=== PATIENT | male | born 1980 | race American Indian/Alaskan Native ===

== ENCOUNTER 2025-09-05 19:24 | Emergency (ER) | payer SELFPAY ==
[2025-09-05 20:23] LABS: BASOPHILS ABSOLUTE AUTO 0.07 K/uL (0.00-0.20); BASOPHILS PERCENT AUTO 0.6 % (0.0-1.0); EOSINOPHILS ABSOLUTE AUTO 0.16 K/uL (0.00-0.45); EOSINOPHILS PERCENT AUTO 1.4 % (0.0-6.0); IMMATURE GRAN ABSOLUTE AUTO 0.04 K/uL (0.00-0.05); IMMATURE GRAN PERCENT AUTO 0.4 % (0.0-0.4); LYMPHOCYTES ABSOLUTE AUTO 2.95 K/uL (1.00-4.80); LYMPHOCYTES PERCENT AUTO 26.2 % (24.0-44.0); MEAN PLATELET VOLUME 11.2 fL (9.4-12.4); MONOCYTES ABSOLUTE AUTO 0.55 K/uL (0.00-0.80); MONOCYTES PERCENT AUTO 4.9 % (0.0-8.0); NEUTROPHILS ABSOLUTE AUTO 7.48 K/uL (1.80-7.70); NEUTROPHILS PERCENT AUTO 66.5 % (41.0-71.0); NRBC ABSOLUTE 0.00 K/uL (0.00-0.02); NRBC PERCENT 0.0 /100WBC (0.0-0.2); PLATELET COUNT,PLT 270 K/uL (150-400); RED BLOOD CELL COUNT 5.20 M/uL (4.52-5.90); WHITE BLOOD CELL COUNT,WBC 11.25 K/uL (3.9-11.3)
[2025-09-05] MEDS ORDERED: Sodium Chloride 0.9% 10 ML Syringe FLUSH PRN (20:30)
[2025-09-05] MEDS ORDERED: Sodium Chloride 0.9% 2.5 ML Syringe FLUSH PRN (20:30)
[2025-09-05 20:49] LABS: A/G RATIO 0.9 (0.9-1.6); BILIRUBIN TOTAL 1.0 mg/dL (0.2-1.0); BLOOD UREA NITROGEN,BUN 20.0 mg/dL (7.0-18.0); CARBON DIOXIDE,CO2 22.7 mmol/L (21.0-32.0); CHLORIDE,CL 94.0 mmol/L (98-107); CREATINE KINASE,CK 732.0 U/L (26-308); CREATININE 1.3 mg/dL (0.8-1.3); EST CRCL DRUG DOSING (CG) 68.69 mL/min; POTASSIUM,K 4.7 mmol/L (3.5-5.1); PROTEIN TOTAL,TP 8.4 g/dL (6.4-8.2); SODIUM,NA 131.0 mmol/L (136-148)
[2025-09-05 20:57] LABS: ESTIMATED GFR 69.0 mL/min (>60); GLUCOSE RANDOM 523.0 mg/dL (74-106)
[2025-09-05] MEDS ORDERED: 50% Dextrose in Water 50 ML Syringe IVPUSH PRN ×3 (20:59→21:54)
[2025-09-05] MEDS: Insulin Regular, Human 100 Units/ML 10 ML Vial IVPUSH ONE ×2 (21:08→21:56)
[2025-09-05 21:31] LABS: ALANINE AMINOTRANSFERASE,ALT 162.0 IU/L (14-63); ASPARTATE AMNIOTRANSFERASE,AST 102.0 IU/L (15-37)
[2025-09-05 21:43] LABS: APPEARANCE,URINE CLEAR; GLUCOSE,URINE >=1000 mg/dL (NEGATIVE)
[2025-09-05] MEDS: Insulin Glargine,Human Rec. Analog 100 Units/ML 3 ML Pen SUBCUT ONE (21:54)
[2025-09-05] MEDS: Insulin Glargine,Human Rec. Analog 100 Units/ML 3 ML Pen ONE (21:55)
[2025-09-05 21:58] LABS: CHOLESTEROL HDL 28 mg/dL (40-60); CHOLESTEROL TOTAL 186 mg/dL (50-200); ETHANOL BLOOD MEDICAL <3 mg/dL; PRO B-TYPE NATRIUR PEPT,BNPPRO 10 pg/mL (0-125)
[2025-09-05 22:06] LABS: EPITHELIAL CELLS,URINE NOT SEEN (NONE-FEW); OCCULT BLOOD,URINE LARGE (NEGATIVE)
[2025-09-05 22:48] LABS: BLOOD UREA NITROGEN,BUN 17.0 mg/dL (7.0-18.0); CARBON DIOXIDE,CO2 20.3 mmol/L (21.0-32.0); CHLORIDE,CL 100.0 mmol/L (98-107); CREATININE 1.0 mg/dL (0.8-1.3); EST CRCL DRUG DOSING (CG) 89.3 mL/min; ESTIMATED GFR 94.0 mL/min (>60); GLUCOSE RANDOM 387.0 mg/dL (74-106); POTASSIUM,K 4.0 mmol/L (3.5-5.1); SODIUM,NA 135.0 mmol/L (136-148)
[2025-09-06] MEDS ORDERED: Insulin Glargine,Human Rec. Analog 100 Units/ML 3 ML Pen SUBCUT ONE (21:00)
== END 2025-09-05 23:19 | disposition home or self-care (01) ==
LOC: MW.ED 19:24
DX: E11.65 Type 2 diabetes mellitus with hyperglycemia (principal); E86.0 Dehydration; R74.8 Abnormal levels of other serum enzymes; Z79.4 Long term (current) use of insulin; Z79.84 Long term (current) use of oral hypoglycemic drugs
CPT/HCPCS: 36415; 80048; 80053; 80061; 80307; 81001; 82550; 82947; 83036; 83690; 83735; 83880; 84484; 85025; 87428-QW; 93005; 93010; 96360; 96361; 99283; 99283-25; A9270-GY; J1815-GY; J7030